=== PATIENT | male | born 1935 | race Caucasian/White ===

== ENCOUNTER 2023-04-26 11:00 | Outpatient (CLI) | payer MEDICARE, OTHER | END 2023-04-26 11:01 | disposition home or self-care (01) | LOC: PET 11:00 | PROVIDERS: ATTEND Internal Medicine | DX: C44.42 Squamous cell carcinoma of skin of scalp and neck (principal); C79.51 Secondary malignant neoplasm of bone; K11.8 Other diseases of salivary glands | CPT/HCPCS: 78815; A9552 ==

== ENCOUNTER 2023-05-08 09:06 | Outpatient (CLI) | payer MEDICARE, OTHER ==
[2023-05-05 10:18] VITALS: BMI 25.8
== END 2023-05-08 09:07 | disposition home or self-care (01) ==
LOC: SCSMRI 09:06
PROVIDERS: ATTEND Internal Medicine
DX: C44.42 Squamous cell carcinoma of skin of scalp and neck (principal); R59.0 Localized enlarged lymph nodes
CPT/HCPCS: 70553

== ENCOUNTER 2023-05-08 12:00 | Day surgery (SDC) | payer MEDICARE ==
[2023-05-08] MEDS ORDERED: PROPOFOL 20 ML ONE (12:51)
[2023-05-08] MEDS ORDERED: Succinylcholine 200 MG/10 ml SYRINGE FS ONE (12:52)
[2023-05-08] MEDS ORDERED: Ondansetron PF 4 MG/2 ML Vial ONE (12:52)
[2023-05-08] MEDS ORDERED: Lidocaine 2% PF 5 ML VIAL ONE (12:52)
[2023-05-08] MEDS ORDERED: SUGAMMADEX SODIUM 200 MG/2 ML VIAL ONE (12:52)
[2023-05-08] MEDS ORDERED: Rocuronium Bromide 10 MG/ML (10ML VIAL) ONE (12:52)
[2023-05-08] MEDS ORDERED: fentaNYL 50 mcg/mL 1 mL Vial ONE (12:52)
[2023-05-08] MEDS ORDERED: Famotidine/PF 20 mg/2ml Vial ONE (12:54)
[2023-05-08] MEDS ORDERED: Lidocaine 1% PF 5 ML VIAL ONE (13:04)
[2023-05-08] MEDS ORDERED: Glycopyrrolate 0.2 MG/ML 5 ML SYRINGE ONE (13:04)
== END 2023-05-08 16:10 | disposition home or self-care (01) ==
LOC: SDC 12:00
PROVIDERS: ATTEND Internal Medicine
PROC: 0B9F8ZX Drainage of Right Lower Lung Lobe, Via Natural or Artificial Opening Endoscopic, Diagnostic (ICD-10-PCS; principal; 2023-05-08)
DX: R59.0 Localized enlarged lymph nodes (principal); R84.6 Abnormal cytological findings in specimens from respiratory organs and thorax; E78.00 Pure hypercholesterolemia, unspecified; I10 Essential (primary) hypertension; Z98.890 Other specified postprocedural states; Z88.0 Allergy status to penicillin
CPT/HCPCS: 31624; 31652; 70553; J3010; 88112; 88172; 88173; 88177; 88305; 88341; 88342; J2001; J2405; J2704; S0028